=== PATIENT | female | born 1985 | race Caucasian/White ===

== ENCOUNTER 2019-11-23 10:25 | Emergency (ER) | payer OTHER, SELFPAY ==
[2019-11-23 10:30] VITALS: BP 117/79; PULSE 72; RESP 14; TEMP 36.3; O2SAT 100; BMI 30.8
[2019-11-23 11:13] LABS: Prothrombin Time 11.8 SECONDS (10.1-12.7)
[2019-11-23 11:16] LABS: PTT Partial Thromboplastin Tim 29 SECONDS (26.4-36.2)
[2019-11-23 11:17] LABS: Alanine Aminotransferase 16 IU/L (<35); Albumin 4.5 g/dL (3.5-5.0); Albumin Globulin Ratio 1.3 (1.0-2.8); Alkaline Phosphatase 63 U/L (38-126); Aspartate Aminotransferase 37 IU/L (14-36); BUN Creatinine Ratio 18.8 (6-22); Bilirubin Total 0.5 mg/dL (0.2-1.3); Blood Urea Nitrogen 15 mg/dL (7-17); Calcium 10.4 mg/dL (8.4-10.2); Carbon Dioxide 24 mmol/L (22-32); Chloride 105 mmol/L (98-107); Estimated Glomerular Filt Rate > 60.0 mL/min (>60); Globulin 3.4 g/dL (1.7-4.1); Glucose 108 mg/dL (70-100); HEMOLYSIS < 15 (0-50); Lipase 68 U/L (23-300); Potassium 4.3 mmol/L (3.4-5.1); Sodium 137 mmol/L (137-145); Total Protein 7.9 g/dL (6.3-8.2)
[2019-11-23 11:34] LABS: Add Manual Diff / Slide Review NO; Basophils Absolute Auto 100 /uL (0-100); Basophils Percent Auto 1.1 % (0-2); Eosinophils Absolute Auto 100 /uL (0-450); Eosinophils Percent Auto 1.5 % (2-4); Hematocrit 40.1 % (36-46); Hemoglobin 13.7 g/dL (12.0-16.0); Lymphocytes Absolute Auto 1500 /uL (1100-4500); Lymphocytes Percent Auto 30.5 % (25-40); Mean Corpuscular HGB Conc 34.3 % (30-36); Mean Corpuscular Hemoglobin 32.3 PG (26-34); Mean Corpuscular Volume 94.2 fL (80-100); Monocytes Absolute Auto 600 /uL (0-900); Monocytes Percent Auto 11.8 % (3-14); Neutrophils Absolute Auto 2700 /uL (1500-7000); Neutrophils Percent Auto 55.1 % (50-75); Platelet Count 255 X10^3/uL (150-400); Red Blood Cell Count 4.26 X10^6/uL (4.0-5.2); White Blood Cell Count 4.9 X10^3/uL (4.5-11.0)
--- NOTE | 2019-11-23 12:07 | ED_ITS ---
HPI - Abdominal Pain <Margo MullenJHONY - Last Filed: 11/23/19 14:16> General Chief Complaint: Abdominal Pain Stated Complaint: random abdominal pain,felt like labor last night Time Seen by Provider: 11/23/19 11:41 Source: patient Mode of arrival: Ambulatory History of Present Illness HPI narrative: 34-year-old female presents to the emergency department complaining of abnormal uterine bleeding for the past 3 months. She is and gave to her twins 19 months ago via . After the , she resumed normal menstrual cycles 5 months after. Patient states she usually has a 23-28 day cycle with 5 days of menstruation. However, this September she noticed longer durations of bleeding, heavier bleeding, and significant uterine cramping. Patient states in September she had 3 weeks of spotting and 7 days of heavy bleeding, 19 days later she had 1 week of spotting and a few days of heavy bleeding with increased pain that has caused her to double over at times. She states the pain is ?like labor pains ?. Patient rates the cramping at a 2-6/10. Patient states she has normal bright red bleeding with occasional clots. She is no longer . During the cramping she often feels faint because the pain is severe. She denies any dysuria but states her grandmother has a history of bladder cancer. Patient states the cramping is better with taking Tylenol and taking shower. She states the cramping is worse with sitting. She denies any abnormal discharge, nausea, vomiting, chest pain, shortness of breath, history of blood clots, or other concerns. Patient states she does have hypothyroidism and she recently had a TSH test in September which was normal and required no alteration of levothyroxine. Patient has not been sexual active since the of her children 19 months ago. Patient states pain is very minimal at this time Related Data Home Medications Medication Instructions Recorded Confirmed acetaminophen 650 mg PO Q6H PRN 11/23/19 11/23/19 ibuprofen 400 mg PO Q6H PRN 11/23/19 11/23/19 levothyroxine 50 mcg PO DAILY 11/23/19 11/23/19 Allergies Allergy/AdvReac Type Severity Reaction Status Date / Time propoxyphene Allergy Verified 11/23/19 10:30 [From Darvocet-N] sulfamethoxazole Allergy Verified 11/23/19 10:30 [From ] trimethoprim [From ] Allergy Verified 11/23/19 10:30 Review of Systems <JHONY Bazan - Last Filed: 11/23/19 14:16> Review of Systems Narrative: REVIEW OF SYSTEMS: GENERAL: Denies fever, chills, malaise, or wt. loss. HENT: No head trauma, sore throat, or dysphagia. EYES: No loss of vision, double vision, eye pain, or irritation. CARDIOVASCULAR: No chest pain, palpitations, or orthopnea. RESPIRATORY: No shortness of breath or cough. GASTROINTESTINAL: Denies abdominal pain. GENITOURINARY: No flank pain, urinary incontinence, hesitancy, frequency, or dysuria. Complains of increased vaginal cramping and abnormal uterine bleeding. MUSCULOSKELETAL: No pain, weakness, or trauma. INTEGUMENTARY: No rash, lesions, or pruritus. NEURO: No numbness, tingling, memory loss, confusion, or headaches. PSYCH: No behavior or mood changes. Patient History <JHONY Bazan - Last Filed: 11/23/19 14:16> Medical History Hypothyroidism (Acute) Social History Smoking Status: Former smoker Smoking Status: Former smoker Exam <JHONY Bazan - Last Filed: 11/23/19 14:16> Initial Vital Signs Initial Vital Signs: Vital Signs Temperature 97.4 F L 11/23/19 10:30 Pulse Rate 72 11/23/19 10:30 Respiratory Rate 14 11/23/19 10:30 Blood Pressure 117/79 11/23/19 10:30 Pulse Oximetry 100 11/23/19 10:30 PHYSICAL EXAMINATION: GENERAL: Well groomed, alert, and cooperative. Answers questions promptly and appropriately. Vital signs noted. HENT: Normocephalic, atraumatic. Hearing intact. Oral mucosa is pink and moist. EYES: Conjunctiva pink, sclera white, no periorbital swelling. CARDIOVASCULAR: S1 and S2 sounds normal. Regular rate and rhythm, no murmurs, clicks, or bruits. No pedal edema. RESPIRATORY: Normal respiratory rate, trachea midline, airway patent. No stridor, nasal flaring or accessory muscle use. Lungs are clear in all ulrich without wheeze, rhonchi, or crackles. GASTROINTESTINAL: Bowel sounds normoactive. Abdomen is soft, lower mid and left-sided pelvic tenderness. No organomegaly, no palpable masses. GENITALURINARY: No flank tenderness. MUSCULOSKELETAL: Normal gait and coordination. Equal tone and mass bilaterally. EXTREMITIES: CMS intact, no pedal edema. SKIN: Warm, dry, soft, appropriate color for ethnicity. No lesions, rashes, or wounds to visualized areas. NEURO: Alert and Oriented X 3. Good coordination. No ataxia, or sensory de ficits, or cognitive issues. PSYCH: Appropriate affect and mood. <Maryam Rivera DO - Last Filed: 11/24/19 13:10> Initial Vital Signs Initial Vital Signs: Vital Signs Temperature 97.4 F L 11/23/19 10:30 Pulse Rate 72 11/23/19 10:30 Respiratory Rate 14 11/23/19 10:30 Blood Pressure 117/79 11/23/19 10:30 Pulse Oximetry 100 11/23/19 10:30 Course <JHONY Bazan - Last Filed: 11/23/19 14:16> Course Course Narrative: Patient was given Toradol in the emergency department, slightly improved pain. Orders Ordered: Discontinued Medications Ketorolac Tromethamine (Toradol) 30 mg IV NOW ONE Stop: 11/23/19 12:17 Last Admin: 11/23/19 12:30 Dose: 30 mg Documented by: JOZEF Consultations Consultation #1: Patient staffed with Dr. Rivera. Vital Signs Vital signs: Vital Signs - 8 hr 11/23/19 10:30 11/23/19 13:00 11/23/19 14:00 Temperature 97.4 F L Pulse Rate 72 70 62 Respiratory Rate 14 18 12 Blood Pressure 117/79 Blood Pressure [Right Arm] 127/70 122/62 Pulse Oximetry 100 98 99 <aMryam Rivera DO - Last Filed: 11/24/19 13:10> Orders Ordered: Discontinued Medications Ketorolac Tromethamine (Toradol) 30 mg IV NOW ONE Stop: 11/23/19 12:17 Last Admin: 11/23/19 12:30 Dose: 30 mg Documented by: JOZEF Vital Signs Vital signs: Vital Signs - 8 hr 11/23/19 10:30 11/23/19 13:00 11/23/19 14:00 Temperature 97.4 F L Pulse Rate 72 70 62 Respiratory Rate 14 18 12 Blood Pressure 117/79 Blood Pressure [Right Arm] 127/70 122/62 Pulse Oximetry 100 98 99 MDM - Abdominal Pain <SHERIDAN BazanP - Last Filed: 11/23/19 14:16> Medical Records Attestation: I reviewed the patient's medical records. Lab Data Attestation: I reviewed the patient's lab results. Result diagrams: 11/23/19 11:00 11/23/19 11:00 Labs: Lab Results 11/23/19 11/23/19 11/23/19 Range/Units 11:00 11:00 11:00 WBC 4.9 (4.5-11.0) X10^3/uL RBC 4.26 (4.0-5.2) X10^6/uL Hgb 13.7 (12.0-16.0) g/dL Hct 40.1 (36-46) % MCV 94.2 (80-100) fL MCH 32.3 (26-34) PG MCHC 34.3 (30-36) % RDW 13.0 (11.6-14.8) % Plt Count 255 (150-400) X10^3/uL Neut % (Auto) 55.1 (50-75) % Lymph % (Auto) 30.5 (25-40) % [place] % (Auto) 11.8 (3-14) % Eos % (Auto) 1.5 L (2-4) % Baso % (Auto) 1.1 (0-2) % Neut # (Auto) 2700 (2382-4000) /uL Lymph # (Auto) 1500 (4487-0001) /uL [place] # (Auto) 600 (0-900) /uL Eos # (Auto) 100 (0-450) /uL Baso # (Auto) 100 (0-100) /uL PT 11.8 (10.1-12.7) SECONDS INR 1.0 (0.9-1.3) APTT 29 (26.4-36.2) SECONDS Sodium 137 (137-145) mmol/L Potassium 4.3 (3.4-5.1) mmol/L Chloride 105 (98-107) mmol/L Carbon Dioxide 24 (22-32) mmol/L BUN 15 (7-17) mg/dL Creatinine 0.80 (0.52-1.04) mg/dL Estimated GFR > 60.0 (>60) mL/min BUN/Creatinine Ratio 18.8 (6-22) Glucose 108 H (70-100) mg/dL Calcium 10.4 H (8.4-10.2) mg/dL Total Bilirubin 0.5 (0.2-1.3) mg/dL AST 37 H (14-36) IU/L ALT 16 (<35) IU/L Alkaline Phosphatase 63 (38-126) U/L Total Protein 7.9 (6.3-8.2) g/dL Albumin 4.5 (3.5-5.0) g/dL Globulin 3.4 (1.7-4.1) g/dL Albumin/Globulin Ratio 1.3 (1.0-2.8) Lipase 68 (23-300) U/L TSH (0.47-4.68) uIU/mL Urine RBC (0-5/HPF) Urine WBC (0-5/HPF) Ur Squamous Epith Cells (0-5/HPF) Urine Bacteria (None) Ur Culture Indicated? 11/23/19 11/23/19 Range/Units 11:00 11:57 WBC (4.5-11.0) X10^3/uL RBC (4.0-5.2) X10^6/uL Hgb (12.0-16.0) g/dL Hct (36-46) % MCV (80-100) fL MCH (26-34) PG MCHC (30-36) % RDW (11.6-14.8) % Plt Count (150-400) X10^3/uL Neut % (Auto) (50-75) % Lymph % (Auto) (25-40) % [place] % (Auto) (3-14) % Eos % (Auto) (2-4) % Baso % (Auto) (0-2) % Neut # (Auto) (4637-7597) /uL Lymph # (Auto) (4751-9486) /uL [place] # (Auto) (0-900) /uL Eos # (Auto) (0-450) /uL Baso # (Auto) (0-100) /uL PT (10.1-12.7) SECONDS INR (0.9-1.3) APTT (26.4-36.2) SECONDS Sodium (137-145) mmol/L Potassium (3.4-5.1) mmol/L Chloride (98-107) mmol/L Carbon Dioxide (22-32) mmol/L BUN (7-17) mg/dL Creatinine (0.52-1.04) mg/dL Estimated GFR (>60) mL/min BUN/Creatinine Ratio (6-22) Glucose (70-100) mg/dL Calcium (8.4-10.2) mg/dL Total Bilirubin (0.2-1.3) mg/dL AST (14-36) IU/L ALT (<35) IU/L Alkaline Phosphatase (38-126) U/L Total Protein (6.3-8.2) g/dL Albumin (3.5-5.0) g/dL Globulin (1.7-4.1) g/dL Albumin/Globulin Ratio (1.0-2.8) Lipase (23-300) U/L TSH 0.06 L (0.47-4.68) uIU/mL Urine RBC 10-30/hpf H (0-5/HPF) Urine WBC 0-1/hpf (0-5/HPF) Ur Squamous Epith Cells 0-1 /hpf (0-5/HPF) Urine Bacteria None seen (None) Ur Culture Indicated? Cult not indicated Point of care testing: Point of Care Testing Test Results Negative Urine Dip Bedside Urine Glucose Negative Bedside Urine Bilirubin - Negative Bedside Urine Ketone - Negative Urine Specific [place] 1.015 Bedside Urine Occult Blood +++ Bedside Urine pH 6.5 Bedside Urine Protein - Negative Bedside Urine Urobilinogen - Negative Bedside Urine Nitrite - Negative Bedside Urine Leukocytes +/- 15 Esterase Imaging Data US - [facility]: Radiologist's Impression: [address] [address] Ultrasound Report Signed Patient: Kaylah Dominguez BMR#: [id number] : 1985Acct:[id number] Age/Sex: 34 / FDate of Service: 11/23/19 Loc: ED Accession Number: [id number] Procedure: US pelvic complete Ordering Provider: Margo Mullen PROCEDURE: US PELVIC COMPLETE INDICATIONS: PELVIC CRAMPING, ABN UTERINE CYCLE TECHNIQUE: Real-time scanning was performed of the pelvic organs, with image documentation. Additional endovaginal scanning was necessary due to incomplete visualization of the adnexal and endometrial structures by transabdominal scanning. COMPARISON: None. FINDINGS: Transabdominal scanning: Limited scanning through the kidneys shows no hydronephrosis. No pathologic free abdominal or pelvic fluid. Endovaginal scanning: Uterus: Uterus is anteverted and retroflexed and normal in size at 8.6 x 3.6 x 4.6 cm. Heterogeneous with shadowing at the anterior aspect possibly related to C- section scar. The endometrium measures 6 mm in combined thickness. Ovaries: Within normal limits. Right ovary measures 2.9 x 1.8 x 2.2 cm. Left ovary measures 3.8 x 2 x 1.9 cm. Small left ovarian cyst or follicle measuring 1.2 cm. IMPRESSION: 1. No fluid collection. Mild heterogeneity and shadowing at the anterior uterus which is likely related to the section scar. 2. Endometrium is within normal limits. 3. Normal sonographic appearance of the ovaries. Dictated by: Lm Singh M.D. on 11/23/2019 at 13:03 Approved by: Lm Singh M.D. on 11/23/2019 at 13:06 MDM Narrative Medical decision making narrative: 34-year-old female history of hypothyroidism complains of abnormal menstruation cycles an increase in menstruation cramps. Patient was hemodynamically stable throughout the emergency department stay, no concerns of significant bleeding. Patient's TSH was found to be 0.06 today. Pelvic ultrasound negative for any concerning findings. Differential includes fluctuation of thyroid from affecting menstruation, hormonal imbalance, premenopausal symptoms due to lack of other findings and laboratory work. Less likely tubal and patient reports not having sexual intercourse for 19 months. Less likely ovarian cyst, ovarian cancer, or fibroids due to lack of findings on ultrasound. Less likely PID due to lack of sexual activity for well over a year, lack of abnormal discharge, lack of fevers and main report of unusual intermittent bleeding and cramping. Patient was encouraged to follow up with [facility] for further evaluation and possible further testing is needed. Patient was also encouraged to follow up with her primary care provider and/or offset label rewinder for low TSH level. We discussed that it was not a good idea to change her medication at this time as follow-up was near and possible and she was not having any other symptoms. Patient agreed with plan of care and verbalized understanding. <Maryam Rivera, DO - Last Filed: 11/24/19 13:10> Lab Data Labs: Lab Results 11/23/19 11/23/19 11/23/19 Range/Units 11:00 11:00 11:00 WBC 4.9 (4.5-11.0) X10^3/uL RBC 4.26 (4.0-5.2) X10^6/uL Hgb 13.7 (12.0-16.0) g/dL Hct 40.1 (36-46) % MCV 94.2 (80-100) fL MCH 32.3 (26-34) PG MCHC 34.3 (30-36) % RDW 13.0 (11.6-14.8) % Plt Count 255 (150-400) X10^3/uL Neut % (Auto) 55.1 (50-75) % Lymph % (Auto) 30.5 (25-40) % [place] % (Auto) 11.8 (3-14) % Eos % (Auto) 1.5 L (2-4) % Baso % (Auto) 1.1 (0-2) % Neut # (Auto) 2700 (0197-8003) /uL Lymph # (Auto) 1500 (4734-4670) /uL [place] # (Auto) 600 (0-900) /uL Eos # (Auto) 100 (0-450) /uL Baso # (Auto) 100 (0-100) /uL PT 11.8 (10.1-12.7) SECONDS INR 1.0 (0.9-1.3) APTT 29 (26.4-36.2) SECONDS Sodium 137 (137-145) mmol/L Potassium 4.3 (3.4-5.1) mmol/L Chloride 105 (98-107) mmol/L Carbon Dioxide 24 (22-32) mmol/L BUN 15 (7-17) mg/dL Creatinine 0.80 (0.52-1.04) mg/dL Estimated GFR > 60.0 (>60) mL/min BUN/Creatinine Ratio 18.8 (6-22) Glucose 108 H (70-100) mg/dL Calcium 10.4 H (8.4-10.2) mg/dL Total Bilirubin 0.5 (0.2-1.3) mg/dL AST 37 H (14-36) IU/L ALT 16 (<35) IU/L Alkaline Phosphatase 63 (38-126) U/L Total Protein 7.9 (6.3-8.2) g/dL Albumin 4.5 (3.5-5.0) g/dL Globulin 3.4 (1.7-4.1) g/dL Albumin/Globulin Ratio 1.3 (1.0-2.8) Lipase 68 (23-300) U/L TSH (0.47-4.68) uIU/mL Urine RBC (0-5/HPF) Urine WBC (0-5/HPF) Ur Squamous Epith Cells (0-5/HPF) Urine Bacteria (None) Ur Culture Indicated? 11/23/19 11/23/19 Range/Units 11:00 11:57 WBC (4.5-11.0) X10^3/uL RBC (4.0-5.2) X10^6/uL Hgb (12.0-16.0) g/dL Hct (36-46) % MCV (80-100) fL MCH (26-34) PG MCHC (30-36) % RDW (11.6-14.8) % Plt Count (150-400) X10^3/uL Neut % (Auto) (50-75) % Lymph % (Auto) (25-40) % [place] % (Auto) (3-14) % Eos % (Auto) (2-4) % Baso % (Auto) (0-2) % Neut # (Auto) (9215-8376) /uL Lymph # (Auto) (0819-4264) /uL [place] # (Auto) (0-900) /uL Eos # (Auto) (0-450) /uL Baso # (Auto) (0-100) /uL PT (10.1-12.7) SECONDS INR (0.9-1.3) APTT (26.4-36.2) SECONDS Sodium (137-145) mmol/L Potassium (3.4-5.1) mmol/L Chloride (98-107) mmol/L Carbon Dioxide (22-32) mmol/L BUN (7-17) mg/dL Creatinine (0.52-1.04) mg/dL Estimated GFR (>60) mL/min BUN/Creatinine Ratio (6-22) Glucose (70-100) mg/dL Calcium (8.4-10.2) mg/dL Total Bilirubin (0.2-1.3) mg/dL AST (14-36) IU/L ALT (<35) IU/L Alkaline Phosphatase (38-126) U/L Total Protein (6.3-8.2) g/dL Albumin (3.5-5.0) g/dL Globulin (1.7-4.1) g/dL Albumin/Globulin Ratio (1.0-2.8) Lipase (23-300) U/L TSH 0.06 L (0.47-4.68) uIU/mL Urine RBC 10-30/hpf H (0-5/HPF) Urine WBC 0-1/hpf (0-5/HPF) Ur Squamous Epith Cells 0-1 /hpf (0-5/HPF) Urine Bacteria None seen (None) Ur Culture Indicated? Cult not indicated Point of care testing: Point of Care Testing Test Results Negative Urine Dip Bedside Urine Glucose Negative Bedside Urine Bilirubin - Negative Bedside Urine Ketone - Negative Urine Specific [place] 1.015 Bedside Urine Occult Blood +++ Bedside Urine pH 6.5 Bedside Urine Protein - Negative Bedside Urine Urobilinogen - Negative Bedside Urine Nitrite - Negative Bedside Urine Leukocytes +/- 15 Esterase Discharge Plan Departure Patient Disposition: Home Clinical Impression: Abnormal uterine bleeding, Abdominal cramping Discharge Date/Time: 11/23/19 14:02 Activity Restrictions/Additional Instructions: Thank you for entrusting me with your care today. As discussed, your TSH is 0.06 today which is low and may indicate an need for medication adjustment. Your ultrasound and other lab work do not show any concerning findings. Please follow-up with your primary care provider of [facility] in 2-4 weeks for continued evaluation and possible further testing. I suggest taking 400mg of ibuprofen 1- 2 days before the onset of menstruation. Return emergency department for any new or worsening symptoms such as worsening pain, increased bleeding, fevers, uncontrollable vomiting, or other concerns. Prescriptions: No Action acetaminophen 325 mg Tablet 650 mg PO Q6H PRN (Reason: pain) RF: 0 levothyroxine 50 mcg Tablet 50 mcg PO DAILY RF: 0 ibuprofen 200 mg Tablet 400 mg PO Q6H PRN (Reason: pain) RF: 0 Referrals: Kaylynn Stevens MD [Physician] - (Abnormal menstruation pattern and dysmenorrhea, abnormal TSH)
[2019-11-23 12:10] LABS: Bacteria Urine None Seen
[2019-11-23 12:20] LABS: Culture Indicated Urine Cult Not Indicated; RBC Urine 10-30/HPF (0-5/HPF); Squamous Epithelial Cell Urine 0-1 /HPF (0-5/HPF); WBC Urine 0-1/HPF (0-5/HPF)
[2019-11-23] MEDS: KETOROLAC 60 MG/2 ML VIAL 30 MG IV (12:30)
[2019-11-23 13:00] VITALS: BP 127/70; PULSE 70; RESP 18; O2SAT 98
[2019-11-23 13:34] LABS: Thyroid Stimulating Hormone 0.06 uIU/mL (0.47-4.68)
[2019-11-23 14:00] VITALS: BP 122/62; PULSE 62; RESP 12; O2SAT 99
== END 2019-11-23 14:02 | disposition home or self-care (01) ==
PROVIDERS: Emergency Medicine; Emergency Provider Nurse Practitioner; Family Provider Physician Assistant
DX: N93.9 Abnormal uterine and vaginal bleeding, unspecified (principal); R10.9 Unspecified abdominal pain; E03.9 Hypothyroidism, unspecified
CPT/HCPCS: 36415; 76830; 76856; 80053; 81003; 81015; 81025; 83690; 84443; 85025; 85610; 85730; 96374; 99284; J1885

== ENCOUNTER → 2021-05-23 11:52 | Outpatient (CLI) | payer OTHER, SELFPAY | PROVIDERS: Family Provider Physician Assistant; PCP Nurse Practitioner; Referring Provider Nurse Practitioner; Visit Provider Nurse Practitioner | DX: J34.89 Other specified disorders of nose and nasal sinuses (principal) | CPT/HCPCS: 87070; 87075; 87186; 87205 ==

== ENCOUNTER → 2021-05-29 08:37 | Outpatient (CLI) | payer OTHER, SELFPAY ==
--- NOTE | 2021-05-29 | DI.US.S_ITS ---
LIMITED ULTRASOUND OF LEFT BREAST: 05/29/2021 CLINICAL: Palpable left breast lump. Comparison is made to exam dated: 05/29/2021 [facility]. Real-time ultrasound of the left breast was performed. Castrejon scale images of the real-time examination were reviewed. No significant abnormalities were seen sonographically in the left breast. IMPRESSION: NEGATIVE There is no sonographic evidence of malignancy. There is no abnormality seen in the left breast to correspond with the palpable abnormality, however, clinical followup is recommended. A 2 year screening mammogram is recommended. This exam was interpreted at Station ID: [id number]. Electronically Signed By: Brock blackmon/maria del carmen:05/29/2021 10:26:28 letter sent: Clinical Evaluation Ultrasound BI-RADS: 1 Negative
--- NOTE | 2021-05-29 | DI.MG.S_ITS ---
BILATERAL DIGITAL DIAGNOSTIC MAMMOGRAM 3D/2D: 05/29/2021 CLINICAL: Left breast lump and pain. Baseline exam. No prior exams were available for comparison. The tissue of both breasts is heterogeneously dense. This may lower the sensitivity of mammography. No significant masses, calcifications, or other findings are seen in either breast. IMPRESSION: INCOMPLETE: NEEDS ADDITIONAL IMAGING EVALUATION There is no abnormality seen in the left breast to correspond with the palpable abnormality and pain. Targeted ultrasound is recommended for further evaluation, which will be scheduled immediately following this exam. This exam was interpreted at Station ID: [id number]. NOTE: For mammograms, a report in lay terms will be sent to the patient. Approximately 15% of breast malignancies will not be visualized mammographically. In the management of a palpable breast mass, a negative mammogram must not discourage biopsy of a clinically suspicious lesion. Electronically Signed By: Brock blackmon/maria del carmen:05/29/2021 10:27:37 ACR BI-RADS Category 0: Incomplete [id number]
== END ==
PROVIDERS: Family Provider Physician Assistant; PCP Nurse Practitioner; Referring Provider Nurse Practitioner; Visit Provider Nurse Practitioner
DX: N64.4 Mastodynia (principal); N63.20 Unspecified lump in the left breast, unspecified quadrant; R92.2 Inconclusive mammogram
CPT/HCPCS: 76642; 77066; G0279

== ENCOUNTER → 2022-05-07 08:44 | Outpatient (CLI) | payer OTHER, SELFPAY ==
--- NOTE | 2022-05-07 08:46 | DI.MG.S_ITS ---
BILATERAL DIGITAL DIAGNOSTIC MAMMOGRAM 3D/2D: 05/07/2022 CLINICAL: Left breast pain. Comparison is made to exams dated: 05/29/2021 mammogram and 05/29/2021 ultrasound - [facility]. The tissue of both breasts is heterogeneously dense. This may lower the sensitivity of mammography. No significant masses, calcifications, or other findings are seen in either breast. IMPRESSION: NEGATIVE There is no mammographic evidence of malignancy. Patient reports inferior left breast pain that is cyclic. No mass or suspicious calcifications. No abnormality seen on prior ultrasound. Exam findings were conveyed to the patient. Patient is advised to monitor for significant change. Clinical follow-up as needed. A 1 year screening mammogram is recommended. Future imaging is recommended as follows: 04/03/2023 screening mammogram. Based on the Tyrer Cuzick model (a risk assessment model) the patient's lifetime risk is 14.7% and her 10 year risk is 1.7%. According to the ACR, ACS, and NCCN guidelines, an annual breast MRI exam along with mammogram is recommended if the patient's lifetime risk is 20% or greater. This exam was interpreted at Station ID: [id number]. NOTE: For mammograms, a report in lay terms will be sent to the patient. Approximately 15% of breast malignancies will not be visualized mammographically. In the management of a palpable breast mass, a negative mammogram must not discourage biopsy of a clinically suspicious lesion. Electronically Signed By: Lm Singh M.D. slc/:05/07/2022 09:18:50 letter sent: Normal Exam ACR BI-RADS Category 1: Negative [id number]
== END ==
PROVIDERS: Family Provider Physician Assistant; PCP Nurse Practitioner; Referring Provider Nurse Practitioner; Visit Provider Nurse Practitioner
DX: N64.4 Mastodynia (principal)
CPT/HCPCS: 77066; G0279

== ENCOUNTER → 2023-07-04 11:50 | Outpatient (CLI) | payer OTHER, SELFPAY ==
--- NOTE | 2023-07-04 | DI.MG.S_ITS ---
BILATERAL DIGITAL SCREENING MAMMOGRAM 3D/2D WITH CAD: 07/04/2023 CLINICAL: Routine screening. Comparison is made to exams dated: 05/07/2022 mammogram and 05/29/2021 mammogram - [facility]. Both breasts are heterogeneously dense, which may obscure small masses (category c / 51-75% glandular tissue). Current study was also evaluated with a Computer Aided Detection (CAD) system. No significant masses, calcifications, or other findings are seen in either breast. There has been no significant interval change. IMPRESSION: NEGATIVE There is no mammographic evidence of malignancy. A 1 year screening mammogram is recommended. Based on the Tyrer Cuzick model (a risk assessment model) the patient's lifetime risk is 15.0% and her 10 year risk is 1.9%. According to the ACR, ACS, and NCCN guidelines, an annual breast MRI exam along with mammogram is recommended if the patient's lifetime risk is 20% or greater. This exam was interpreted at Station ID: [id number]. NOTE: For mammograms, a report in lay terms will be sent to the patient. Approximately 15% of breast malignancies will not be visualized mammographically. In the management of a palpable breast mass, a negative mammogram must not discourage biopsy of a clinically suspicious lesion. Electronically Signed By: Prema fenton/maria del carmen:07/04/2023 21:24:36 letter sent: Normal Exam ACR BI-RADS Category 1: Negative [id number]
== END ==
PROVIDERS: Family Provider Physician Assistant; PCP Nurse Practitioner; Referring Provider Nurse Practitioner; Visit Provider Nurse Practitioner
DX: Z12.31 Encounter for screening mammogram for malignant neoplasm of breast (principal)
CPT/HCPCS: 77063; 77067

== ENCOUNTER → 2023-09-17 09:57 | Outpatient (CLI) | payer OTHER, SELFPAY ==
[2023-09-17 11:29] LABS: Hematocrit 38.9 % (36-46); Mean Corpuscular HGB Conc 33.6 % (30-36); Mean Corpuscular Hemoglobin 32.3 PG (26-34); Mean Corpuscular Volume 96.2 fL (80-100); Platelet Count 266 X10^3/uL (150-400); Red Blood Cell Count 4.04 X10^6/uL (4.0-5.2); Red Cell Distribution Width 13.5 % (11.6-14.8); White Blood Cell Count 4.2 X10^3/uL (4.5-11.0)
[2023-09-17 11:43] LABS: Alanine Aminotransferase 23 IU/L (<35); Albumin 4.2 g/dL (3.5-5.0); Albumin Globulin Ratio 1.3 (1.0-2.8); Alkaline Phosphatase 46 U/L (38-126); Aspartate Aminotransferase 26 IU/L (14-36); BUN Creatinine Ratio 13.3 (6-22); Bilirubin Total 0.9 mg/dL (0.2-1.3); Blood Urea Nitrogen 10 mg/dL (7-17); Calcium 9.4 mg/dL (8.4-10.2); Carbon Dioxide 27 mmol/L (22-32); Chloride 105 mmol/L (98-107); Cholesterol 182 mg/dL (140-199); Estimated Glomerular Filt Rate > 60 mL/min (>60); Globulin 3.2 g/dL (1.7-4.1); Glucose 95 mg/dL (70-100); HDL Cholesterol 57 mg/dL (40-60); HEMOLYSIS < 15 (0-50); LDL Cholesterol Calculated 111 mg/dL (<100); Sodium 136 mmol/L (137-145); Total Protein 7.4 g/dL (6.3-8.2); Triglycerides 68 mg/dL (35-150)
[2023-09-17 12:08] LABS: Free T3, Triiodothyronine Free 2.89 pg/mL (2.77-5.27); Free T4, Direct Thyroxine 1.46 ng/dL (0.78-2.19)
[2023-09-17 12:21] LABS: Thyroid Stimulating Hormone 1.44 uIU/mL (0.47-4.68)
[2023-09-17 15:27] LABS: Creatinine Urine Random 40.1 mg/dL
[2023-09-17 15:31] LABS: Microalbumin Urine Random < 0.6 mg/dL (0-1.6)
[2023-09-18 17:54] LABS: HIV 1 & 2 Ab/Ag 4th Gen Combo NEGATIVE (NEGATIVE); Hep C Virus Ab w/Reflex Quant NEGATIVE s/c (NEGATIVE)
== END ==
PROVIDERS: Family Provider Physician Assistant; PCP Nurse Practitioner; Referring Provider Nurse Practitioner; Visit Provider Nurse Practitioner
DX: Z00.00 Encounter for general adult medical examination without abnormal findings (principal); Z11.59 Encounter for screening for other viral diseases; Z11.4 Encounter for screening for human immunodeficiency virus [HIV]
CPT/HCPCS: 36415; 80053; 80061; 82043; 82570; 84439; 84443; 84481; 85027; 86803; 87389

== ENCOUNTER → 2023-09-23 11:37 | Outpatient (CLI) | payer OTHER, SELFPAY ==
--- NOTE | 2023-09-23 11:38 | DI.RAD.S_ITS ---
PROCEDURE: XR HAND LT MIN 3V INDICATIONS: Left 5th digit injury/deformity TECHNIQUE: 3 views of the hand(s) acquired. COMPARISON: None. FINDINGS: Bones: No fractures or dislocations. Carpal bones are normally aligned. No suspicious bony lesions. Soft tissues: No suspicious soft tissue calcifications. IMPRESSION: No acute bony abnormality. Approved by: Edi Armstrong M.D. on 09/23/2023 at 18:51
== END ==
PROVIDERS: Family Provider Physician Assistant; PCP Nurse Practitioner; Referring Provider Physician Assistant; Visit Provider Physician Assistant
DX: M79.645 Pain in left finger(s) (principal)
CPT/HCPCS: 73130

== ENCOUNTER → 2024-10-02 07:53 | Outpatient (CLI) | payer OTHER, SELFPAY ==
--- NOTE | 2024-10-02 | DI.MG.S_ITS ---
BILATERAL DIGITAL SCREENING MAMMOGRAM 3D/2D WITH CAD: 10/02/2024 CLINICAL: Routine screening. Comparison is made to exams dated: 07/04/2023 mammogram, 05/07/2022 mammogram, and 05/29/2021 mammogram - [facility]. There are scattered areas of fibroglandular density (category b / 25%-50% glandular tissue). Current study was also evaluated with a Computer Aided Detection (CAD) system. No significant masses, calcifications, or other findings are seen in either breast. There has been no significant interval change. IMPRESSION: NEGATIVE There is no mammographic evidence of malignancy. A 1 year screening mammogram is recommended. Based on the Tyrer Cuzick model (a risk assessment model) the patient's lifetime risk is 10.1% and her 10 year risk is 1.4%. According to the ACR, ACS, and NCCN guidelines, an annual breast MRI exam along with mammogram is recommended if the patient's lifetime risk is 20% or greater. This exam was interpreted at Station ID: [id number]. NOTE: For mammograms, a report in lay terms will be sent to the patient. Approximately 15% of breast malignancies will not be visualized mammographically. In the management of a palpable breast mass, a negative mammogram must not discourage biopsy of a clinically suspicious lesion. Electronically Signed By: Js bradley/maria del carmen:10/06/2024 07:17:53 letter sent: Normal Exam ACR BI-RADS Category 1: Negative
== END ==
PROVIDERS: Family Provider Physician Assistant; PCP Family Medicine; Referring Provider Family Medicine; Visit Provider Family Medicine
DX: Z12.31 Encounter for screening mammogram for malignant neoplasm of breast (principal)
CPT/HCPCS: 77063; 77067

== ENCOUNTER → 2024-10-26 07:48 | Outpatient (CLI) | payer OTHER, SELFPAY | LOC: CAR 07:49 | PROVIDERS: Family Provider Physician Assistant; PCP Family Medicine; Referring Provider Family Medicine; Visit Provider Family Medicine | DX: R00.2 Palpitations (principal); R79.89 Other specified abnormal findings of blood chemistry | CPT/HCPCS: 93242; 93244; 93798 ==

== ENCOUNTER → 2024-12-14 07:12 | Outpatient (CLI) | payer OTHER, SELFPAY ==
[2024-12-14 08:42] LABS: Add Manual Diff / Slide Review NO; Basophils Absolute Auto 100 /uL (0-100); Basophils Percent Auto 1.7 % (0-2); Eosinophils Absolute Auto 100 /uL (0-450); Eosinophils Percent Auto 2.7 % (2-4); Hematocrit 39.5 % (36-46); Hemoglobin 13.3 g/dL (12.0-16.0); Lymphocytes Absolute Auto 2000 /uL (1100-4500); Lymphocytes Percent Auto 37.3 % (25-40); Mean Corpuscular HGB Conc 33.7 % (30-36); Mean Corpuscular Hemoglobin 32.3 PG (26-34); Mean Corpuscular Volume 95.8 fL (80-100); Monocytes Absolute Auto 500 /uL (0-900); Neutrophils Absolute Auto 2500 /uL (1500-7000); Neutrophils Percent Auto 48.3 % (50-75); Platelet Count 304 X10^3/uL (150-400); Red Blood Cell Count 4.12 X10^6/uL (4.0-5.2); Red Cell Distribution Width 13.5 % (11.6-14.8); White Blood Cell Count 5.3 X10^3/uL (4.5-11.0)
[2024-12-14 08:44] LABS: Alanine Aminotransferase 22 IU/L (<35); Albumin 4.1 g/dL (3.5-5.0); Albumin Globulin Ratio 1.5 (1.0-2.8); Alkaline Phosphatase 67 U/L (38-126); Aspartate Aminotransferase 24 IU/L (14-36); BUN Creatinine Ratio 16.5 (6-22); Bilirubin Total 0.7 mg/dL (0.2-1.3); Blood Urea Nitrogen 14 mg/dL (7-17); Calcium 9.6 mg/dL (8.4-10.2); Carbon Dioxide 25 mmol/L (22-32); Chloride 105 mmol/L (98-107); Cholesterol 196 mg/dL (140-199); Estimated Glomerular Filt Rate > 60 mL/min (>60); Globulin 2.7 g/dL (1.7-4.1); Glucose 95 mg/dL (70-100); HDL Cholesterol 55 mg/dL (40-60); HEMOLYSIS < 15 (0-50); LDL Cholesterol Calculated 121 mg/dL (<100); Potassium 4.5 mmol/L (3.4-5.1); Sodium 137 mmol/L (137-145); Total Protein 6.8 g/dL (6.3-8.2); Triglycerides 101 mg/dL (35-150)
[2024-12-14 08:48] LABS: Creatinine Urine Random 72.98 mg/dL
[2024-12-14 08:55] LABS: Follicle Stimulating Hormone 13.3 mIU/mL; Progesterone, Total 1.51 ng/mL
[2024-12-14 08:56] LABS: Free T3, Triiodothyronine Free 3.35 pg/mL (2.77-5.27); Free T4, Direct Thyroxine 1.45 ng/dL (0.78-2.19)
[2024-12-14 08:59] LABS: Microalbumin Urine Random < 0.6 mg/dL (0-1.6)
[2024-12-14 09:10] LABS: Thyroid Stimulating Hormone 2.41 uIU/mL (0.47-4.68)
[2024-12-16 18:36] LABS: Estrogen 172 pg/mL (.)
== END ==
PROVIDERS: Family Provider Physician Assistant; PCP Family Medicine; Referring Provider Nurse Practitioner; Visit Provider Nurse Practitioner
DX: Z00.00 Encounter for general adult medical examination without abnormal findings (principal); E06.3 Autoimmune thyroiditis; N95.1 Menopausal and female climacteric states; E66.9 Obesity, unspecified
CPT/HCPCS: 36415; 80053; 80061; 82043; 82570; 82672; 83001; 84144; 84439; 84443; 84481; 85025

== ENCOUNTER → 2025-02-01 13:41 | Outpatient (CLI) | payer OTHER, SELFPAY ==
--- NOTE | 2025-02-01 13:42 | DI.ECHO.S_ITS ---
[facility] : : [address] : : [place] : : [id number] : : Phone: [phone] Echocardiogram Report + + :Name: MARSHALL TORRES Study Date: 02/01/2025 Height: 69 in : :[facility] ReadingLocation: Weight: 230 lb : : Gender: Female BSA: 2.2 m2 : :: 1985 Age: 39 yrs BP: 126/88 mmHg: :Reason For Study: Chest pain : :Ordering Physician: ROSS MCKEON Performed By: Rachel Card : :Referring: ROSS MCKEON : + + Interpretation Summary 1. Left ventricular contractility is normal. Estimate ejection fraction is greater than 60% with no segmental wall motion abnormalities. No LVH. Normal diastolic function. 2. The right ventricular contractility is normal. 3. All cardiac chambers are of normal size. 4. No significant valvular abnormalities. 5. No obvious intracardiac shunts. 6. No obvious intracardiac masses nor thrombi. 7. A trace, nonhemodynamically significant pericardial effusion present. 8. Low right-sided filling pressures. Conclusion: Normal biventricular function with no significant valvular nor structural abnormalities. Procedure: A two-dimensional transthoracic echocardiogram with color flow and Doppler was performed. The study quality was technically adequate. There is no prior echocardiogram noted for this patient. The patient was in sinus rhythm with heart rates between 62-79 bpm during the exam. Left Ventricle: The left ventricle is normal in size and wall thickness. The ejection fraction is estimated to be 60-65%. Diastolic parameters suggest probable normal left ventricular diastolic function and normal filling pressures. Right Ventricle: The right ventricle is normal in size and function. Atria: Both atria are normal in size. There is no Doppler evidence for an interatrial shunt. Mitral Valve: The mitral valve leaflets are slightly calcified. There is no mitral valve stenosis. There is trace mitral regurgitation. Aortic Valve: The aortic valve is trileaflet. The aortic valve opens well. There is no aortic valve stenosis. No aortic regurgitation is present. Tricuspid Valve: The tricuspid valve leaflets are thin and pliable. There is a trace or physiologic amount of tricuspid regurgitation. Pulmonary artery pressures cannot be estimated because of the lack of a measurable TR jet velocity but the IVC suggests a CVP of around 3 mmHg. Pulmonic Valve: The pulmonic valve is not well seen, but is grossly normal. There is a trace or physiologic amount of pulmonic regurgitation. Great Vessels: The aortic root is normal size. The ascending aorta is normal in size. The aortic arch is normal in size. The pulmonary artery is normal size. The IVC is of normal diameter and collapses greater than 50% with a sniff. This suggests a low right atrial pressure of 3 mm Hg. Pericardium/ Pleura There is a trivial pericardial effusion noted. There is no pleural effusion. MMode/2D Measurements & Calculations LVIDd: 5.1 cm LVOT diam: 2.0 cm LVIDs: 4.0 cm Ao root diam: 3.0 cm FS: 20.5 % asc Aorta Diam: 3.0 cm EPSS: 0.44 cm Ao Arch Diam (Prox Trans): 2.0 cm IVSd: 0.73 cm LVPWd: 0.73 cm LV woo. diameter/BSA (cm/m^2): 2.3 LV sys. diameter/BSA (cm/m^2): 1.8 LA A2 area: 13.2 cm2 RA long axis: 4.4 cm LA A4 area: 19.0 cm2 RA area: 11.3 cm2 LA length (vol): 6.6 cm RA vol: 24.8 ml LA vol: 32.5 ml RA : 11.3 ml/m2 LA vol index: 14.8 ml/m2 IVC diam: 1.7 cm TAPSE: 2.4 cm Doppler Measurements & Calculations Ao V2 max: 140.2 cm/sec LVOT Max Shane: 142.2 cm/sec Ao V2 mean: 98.2 cm/sec LV V1 max P.1 mmHg Ao max P.9 mmHg LV V1 VTI: 28.6 cm Ao mean P.4 mmHg DIANE(I,D): 3.0 cm2 Ao V2 VTI: 30.3 cm DIANE(V,D): 3.2 cm2 sev ratio: 0.95 DIANE indexed to BSA (cm^2/m^2): 1.4 MV E max shane: 94.7 cm/sec PA V2 max: 81.5 cm/sec MV A max shane: 62.2 cm/sec PA V2 mean: 54.1 cm/sec MV E/A: 1.5 PA mean P.3 mmHg Med Peak E' Shane: 12.9 cm/sec PA pr(Accel): 49.5 mmHg E/E' med: 7.3 Lat Peak E' Shane: 17.2 cm/sec E/E' lat: 5.5 E/e' average: 6.4 MV dec time: 0.28 sec MVA(VTI): 3.1 cm2 MV V2 mean: 58.0 cm/sec SV(LVOT): 90.6 ml MV mean P.5 mmHg MV V2 VTI: 29.4 cm Reading Physician:JOANA
--- NOTE | 2025-02-01 13:42 | DI.NM.S_ITS ---
PROCEDURE: NM EXERCISE TREADMILL NON NUC COMPARISON: None. INDICATIONS: CHEST PAIN FINDINGS: Patient exercised per the standard Germ[facility] protocol. Total exercise time was 6 minutes and 16 seconds. Test was terminated secondary to fatigue. Maximal heart rate obtained is 159 bpm which is 89% of maximal predicted heart rate. Maximum blood pressure is 174/82[place] [address]. CHELI +44%. 7.0 METS. No ischemic changes noted. No arrhythmias present. No chest pains voiced. Normal heart rate and blood pressure response to exercise. IMPRESSION: 1. Negative exercise treadmill stress test for ischemia. 2. Below average exercise tolerance. Dictated by: Augustine Mckeon M.D. on 02/01/2025 at 16:43 Approved by: Augustine Mckeon M.D. on 02/01/2025 at 16:44
== END ==
PROVIDERS: Family Provider Physician Assistant; PCP Family Medicine; Referring Provider Internal Medicine; Visit Provider Internal Medicine
DX: R07.9 Chest pain, unspecified (principal); R00.2 Palpitations; Z82.49 Family history of ischemic heart disease and other diseases of the circulatory system
CPT/HCPCS: 93017; 93306